=== PATIENT | male | born 1970 | race Hispanic/Latino ===

== ENCOUNTER 2016-10-23 12:53 | Emergency (ER) | payer SELFPAY ==
[2016-10-23 17:28] VITALS: BP 120/82
[2016-10-23] MEDS ORDERED: BACTRIM DS PO ONE (17:31)
[2016-10-23] MEDS ORDERED: NORCO 5/325 PO ONE (17:31)
--- NOTE | 2016-10-23 17:33 | Emergency Department Report ---
- General Chief Complaint: Laceration/Recheck/Suture Stated Complaint: BOIL Time Seen by Provider: 10/23/16 17:31 Source: patient, EMS Mode of arrival: Stretcher Limitations: Other - History of Present Illness Initial Comments: Patient reports a boil to the right buttock that started four days ago. Onset/Timin -: days(s) Location: other (right buttock) Place: other ([facility]) Patient Tetanus UTD: Yes Context: other (none) Associated Symptoms: pain. denies: loss of feeling/numbness, suspect foreign body present, unable to move injured part, weakness followed by dizziness, nausea/vomiting, fever Treatments Prior to Arrival: other (none) - Related Data Home Medications Medication Instructions Recorded Confirmed Last Taken Trihexyphenidyl [Artane] 2 mg PO TID 02/11/15 02/11/15 Unknown Previous Rx's Medication Instructions Recorded Last Taken Type Lisinopril [Zestril TAB] 10 mg PO QDAY #30 tablet 02/16/15 Unknown Rx Buprenorphine/Naloxone [Suboxone 2 3 each SL Q8H #90 film 03/29/15 Unknown Rx mg-0.5 mg SL Film] Folic Acid [Folvite] 1 mg PO QDAY #30 tablet 03/29/15 Unknown Rx Gabapentin [Neurontin] 600 mg PO TID #90 capsule 03/29/15 Unknown Rx Nicotine [Habitrol] 14 mg TD QDAY #30 patch 03/29/15 Unknown Rx Thiamine [Vitamin B-1] 100 mg PO QDAY #30 tablet 03/29/15 Unknown Rx Valproic Acid [Depakene] 500 mg PO BID 30 Days 03/29/15 Unknown Rx Ziprasidone [Geodon] 40 mg PO QAM #30 capsule 03/29/15 Unknown Rx Ziprasidone [Geodon] 60 mg PO QPM #30 capsule 03/29/15 Unknown Rx buPROPion [Wellbutrin] 150 mg PO BID #60 tablet 03/29/15 Unknown Rx Acetaminophen [Acetaminophen TAB] 500 mg PO Q6HR #15 tablet 10/23/16 Unknown Rx Doxycycline [Vibramycin CAP] 100 mg PO Q12HR #14 capsule 10/23/16 Unknown Rx Allergies Allergy/AdvReac Type Severity Reaction Status Date / Time haloperidol [From Haldol] Allergy Rash Verified 02/11/15 11:22 haloperidol lactate Allergy Rash Verified 02/11/15 11:22 [From Haldol] ketorolac tromethamine Allergy Rash Verified 02/11/15 11:22 [From Toradol] ED Review of Systems ROS: Stated complaint: BOIL Other details as noted in HPI Constitutional: denies: chills, diaphoresis, fever, malaise, weakness Respiratory: denies: cough, orthopnea, shortness of breath, SOB with exertion, SOB at rest, stridor, wheezing Cardiovascular: denies: chest pain, palpitations, dyspnea on exertion, orthopnea , edema, syncope, paroxysmal nocturnal dyspnea Gastrointestinal: denies: abdominal pain, nausea, vomiting, diarrhea, constipation Musculoskeletal: denies: back pain, joint swelling, arthralgia, myalgia Skin: other (abscess to the right buttock). denies: rash, lesions, change in color, change in hair/nails, pruritus Hematological/Lymphatic: denies: easy bleeding, easy bruising, swollen glands ED Past Medical Hx - Past Medical History Additional medical history: peptic ulcer disease. back pain - Social History Smoking Status: Never Smoker - Medications Home Medications: Home Medications Medication Instructions Recorded Confirmed Last Taken Type Trihexyphenidyl [Artane] 2 mg PO TID 02/11/15 02/11/15 Unknown History Lisinopril [Zestril TAB] 10 mg PO QDAY #30 tablet 02/16/15 Unknown Rx Buprenorphine/Naloxone [Suboxone 2 3 each SL Q8H #90 film 03/29/15 Unknown Rx mg-0.5 mg SL Film] Folic Acid [Folvite] 1 mg PO QDAY #30 tablet 03/29/15 Unknown Rx Gabapentin [Neurontin] 600 mg PO TID #90 capsule 03/29/15 Unknown Rx Nicotine [Habitrol] 14 mg TD QDAY #30 patch 03/29/15 Unknown Rx Thiamine [Vitamin B-1] 100 mg PO QDAY #30 tablet 03/29/15 Unknown Rx Valproic Acid [Depakene] 500 mg PO BID 30 Days 03/29/15 Unknown Rx Ziprasidone [Geodon] 40 mg PO QAM #30 capsule 03/29/15 Unknown Rx Ziprasidone [Geodon] 60 mg PO QPM #30 capsule 03/29/15 Unknown Rx buPROPion [Wellbutrin] 150 mg PO BID #60 tablet 03/29/15 Unknown Rx Acetaminophen [Acetaminophen TAB] 500 mg PO Q6HR #15 tablet 10/23/16 Unknown Rx Doxycycline [Vibramycin CAP] 100 mg PO Q12HR #14 capsule 10/23/16 Unknown Rx ED Physical Exam - General Limitations: Other General appearance: alert, in no apparent distress - ENT ENT exam: Present: normal exam, mucous membranes moist. Absent: mucous membranes dry - Respiratory Respiratory exam: Present: normal lung sounds bilaterally. Absent: respiratory distress, wheezes, rales, rhonchi, stridor, chest wall tenderness, accessory muscle use, decreased breath sounds, prolonged expiratory - Cardiovascular Cardiovascular Exam: Present: tachycardia, normal heart sounds. Absent: systolic murmur, diastolic murmur, rubs, gallop, clicks, JVD, S3, S4 - GI/Abdominal GI/Abdominal exam: Present: soft, normal bowel sounds. Absent: distended, tenderness, guarding, rebound, rigid - Rectal Rectal exam: Present: other (2 cm rash with erythema, no fluctuance or drainage noted) - Extremities Exam Extremities exam: Present: normal inspection, full ROM, normal capillary refill. Absent: tenderness, pedal edema, joint swelling, calf tenderness - Back Exam Back exam: Present: normal inspection. Absent: CVA tenderness (R), CVA tenderness (L) - Neurological Exam Neurological exam: Present: alert, oriented X3, CN II-XII intact, normal gait, reflexes normal. Absent: motor sensory deficit - Skin Skin exam: Present: warm, dry, intact, normal color, rash (2 cm right buttock), erythema (right buttock). Absent: cyanosis, diaphoretic, urticaria, vesicles, petechiae, pallor, abrasion, ecchymosis ED Course Vital Signs 10/23/16 10/23/16 13:10 17:27 Temperature 98.4 F Pulse Rate 118 H 100 H Respiratory 18 20 Rate Blood Pressure 146/100 Blood Pressure 120/82 [Left] O2 Sat by Pulse 100 Oximetry - Reevaluation(s) Reevaluation #1: 10/23/16 18:01 pain medication and antibiotic orally ordered ED Medical Decision Making - Lab Data Vital Signs 10/23/16 10/23/16 13:10 17:27 Temperature 98.4 F Pulse Rate 118 H 100 H Respiratory 18 20 Rate Blood Pressure 146/100 Blood Pressure 120/82 [Left] O2 Sat by Pulse 100 Oximetry - Medical Decision Making During the course of ED, pain medication and antibiotic orally were ordered. THe patient reported symptomatic relief from pain medication given in the ED. He was sent home with prescriptions for Doxycycline and Ibuprofen, instructed to do warm bath soakes three times a day, follow up in the ED in 48 hours for wound reevaluation to medication regimen therapy, he verbalized understanding - Differential Diagnosis Right Buttock Cellulitis, Abscess, Insect Bite Critical care attestation.: If time is entered above; I have spent that time in minutes in the direct care of this critically ill patient, excluding procedure time. ED Disposition Clinical Impression: Cellulitis Qualifiers: Site of cellulitis: buttock Qualified Code(s): L03.317 - Cellulitis of buttock Disposition: DISCHARGED TO HOME OR SELFCARE Is pt being admited?: No Does the pt Need Aspirin: No Condition: Stable Instructions: Cellulitis (ED) Additional Instructions: Take medication as directed. No drinking, driving or operating heavy machinery with taking pain medication. Do warm bath soaks three times a day. Return back to the ED in 48 hours for wound reevaluation to medication therapy. Return back to the ED for worsening symptoms or concerns Prescriptions: Acetaminophen [Acetaminophen TAB] 500 mg PO Q6HR #15 tablet Doxycycline [Vibramycin CAP] 100 mg PO Q12HR #14 capsule Referrals: PRIMARY CARE, [Primary Care Provider] - 3-5 Days [facility] [Outside] - 3-5 Days Forms: Work/School Release Form(ED) Time of Disposition: 18:11
== END 2016-10-23 19:07 | disposition home or self-care (01) ==
LOC: ED 12:53
DX: L03.317 Cellulitis of buttock (principal); Z88.8 Allergy status to other drugs, medicaments and biological substances
CPT/HCPCS: 99283